=== PATIENT | female | born 1975 | race Caucasian/White ===

== ENCOUNTER 2017-07-30 07:03 | Inpatient (IN) | payer OTHER ==
[~2017-07-30] VITALS: Ht 160 cm; Wt 62.6 kg
[~2017-07-30 07:03] MED LIST: PNV1TABL57 PO; ranitidine
[2017-07-30] MEDS ORDERED: Carboprost 250 mCg/mL Inj IM PRN ×2 (08:20→09:30)
[2017-07-30] MEDS ORDERED: Lactated Ringer's 1,000 ML IV PRN (08:20)
[2017-07-30] MEDS ORDERED: fentaNYL-PF 50 mCg/mL 2 mL Inj IVPUSH PRN (08:20)
[2017-07-30] MEDS ORDERED: Sodium Chloride LOK Flush 10 mL Syringe IVFLUSH PRN (08:20)
[2017-07-30] MEDS ORDERED: Oxytocin 30 Units/500 mL LR 30 UNITS in IV Premix 1 EACH IV PRN ×2 (08:20→09:30)
[2017-07-30] MEDS ORDERED: Methylergonovine 0.2 mg/mL Inj IM PRN ×2 (08:20→09:30)
[2017-07-30] MEDS ORDERED: Oxytocin 10 Unit/mL Inj IM PRN ×2 (08:20→09:30)
[2017-07-30] MEDS ORDERED: Oxytocin 30 Units/500 mL LR Premix IV ONE (08:20)
[2017-07-30] MEDS ORDERED: Hemorrhage Kit, Post Partum XX ONE ×2 (08:20→09:30)
[2017-07-30 08:57] LABS: Mean Corpuscular Hemoglobin 31.9 pg (27.0-35.0); Mean Corpuscular Volume 94.2 fL (81-100)
[2017-07-30] MEDS ORDERED: Ondansetron 2 mg/mL 2 mL Inj IVPUSH PRN (09:25)
[2017-07-30] MEDS ORDERED: Witch Hazel-Glycerin Pads TOPICAL PRN (09:30)
[2017-07-30] MEDS ORDERED: Benzocaine (Dermoplast) 20% 60 Gm Spray TOPICAL PRN (09:30)
--- NOTE | 2017-07-30 09:55 | PCM.HPOB ---
Subjective Date of Service: Jul 30, 2017 Referring Provider: Admitting Physician: Katrin Owens MD Primary Care Physician: Katrin Owens MD Attending Physician: Katrin Owens MD Chief Complaint Active labor at 38+2 weeks History of Present History of Present Illness Patient is a pleasant 41-year-old who has had regular care and has an EDC of 08/11/2017. She woke this morning at 5 AM with contractions that became more regular over the next hour or so and was 4 cm on arrival at the center with intact membranes. heart rate was reactive with baseline in the 130s to 140s with good stjn-po-bjlc variability. Mother is GBS negative. She is also O- and received RhoGAM in the . Weight gain in the was 20 pounds. She did use both tobacco and marijuana throughout the and was counseled regarding their use and effects on the baby. Her 1 hour GTT was elevated at 161, but the 3 hour GTT showed fasting blood sugar 72, 1 hour 131, 2R 96, and 3 hour 58. Her A1c at that time was 5%. Patient's quad screen was also considered screen positive for Down's and she was seen by maternal medicine. However her age-related risk was 1 in 97 and her labs showed the risks to be 1 in 249. Level II ultrasound was reassuring with no abnormalities noted. Mother did not elect to have amniocentesis. She has otherwise been healthy and came regularly for care in this . OB History: (7), Para (6), Term (6), Pre-term (0), , Living (6) Obstetrical Complications: Other (advanced maternal age) Past Medical History Obstetrical History: 1. Her first baby was born in September 1996 at 40 weeks gestational age. She had 5 hours of labor and delivered a 6 pounds and 15 ounce baby boy. Both baby and were healthy and his name is Chapito. 2. Her second baby was born in March 1998 at 39 weeks +6 days. She had 5 are as of labor and had a baby girl weighing 6 lbs. 1 oz. The was healthy but the baby had a VSD with mesh closure at the age of 4. Her name is Andreia, and she has otherwise done well. 3. Her third baby was born in September 2001 at 40 weeks +5 days following 8 hours of labor. She had a baby girl weighing 7 lbs. 2 oz. by vaginal delivery. That baby in were healthy and child's name is Joycelyn. 4. Her next baby was born in August 2007 at 40 weeks gestational age with 3 hours of labor. She had a baby boy who weighed 7 pounds and 2 ounces by vaginal delivery. Baby and healthy were and his name is Chris. 5. Her fifth baby was born in October 2008 at 40 weeks +1 day gestational age with 3 hours of labor. That baby boy weighed 6 lbs. 10 oz. and was born by vaginal delivery. His name is Elliot and he is healthy. 6. Her sixth baby was born April 2012 at 39-1/2 weeks gestational age. She had 2 hours of labor and that baby boy weighed 6 lbs. 5 oz and was warned by vaginal delivery. His name is GLADIS and he is healthy. 7. This is her seventh and current . Gynecologic History: Patient has not had any abnormal Pap smears or STDs. She was consented for tubal ligation during the and is certain she does not want any more babies. Medical History: Patient has had history of iron deficiency anemia, anxiety and depression, and migraine headaches. She has had a previous benign breast mass. She also has mild intermittent asthma. Surgical History: Patient has not had any surgical procedures apart from her vaginal deliveries. Social History: Patient has high school education and is a dwzx-kg-bbrm mom. She lives in a common-law relationship with her partner Blake. She smokes and also uses marijuana. Hx Tobacco Use: Yes Smoking Status: Current Every Day Smoker Hx Alcohol Use: No Hx Substance Use: Yes (patient uses marijuana) Past Family History Living Arrangement: with Family Genetic Screening/Counseling Genetic Screening/Counseling: Positive Comment: patient was screen positive for increased risk of Down's. Genetic Screening/Counseling Patient was screen positive for increased risk of Down's and was seen by maternal medicine. She also had a daughter with previous VSD. Level II ultrasound was normal. Review of Systems Constitutional: Y: Dizziness, Fever Eyes: Denies: Blurred Vision, Redness, Vision Changes ENT: Denies: Dental Problems, Ear Pain, Nasal Congestion, Nose Discharge, Ulcers/Sores in Mouth Cardiovascular: Denies: Chest Pain, Edema Respiratory: Reports: Cough, Wheezing Gastrointestinal: Reports: Nausea, Denies: Abdominal Pain, Constipation, Diarrhea, Vomiting Genitourinary: Denies: Dysuria Musculoskeletal: Denies: Redness, Swelling Skin/Breasts: Denies: Bruising Skin: Denies: Rash Neurological: Denies: Change in Speech Psychologic: Denies: Anxious, Depression Hematologic: Denies: Adenopathy Medications Home medications Patient has been on vitamins, ranitidine, and Ventolin as needed during the . Allergy Coded Allergies: No Known Allergies (Verified Allergy, Unknown, 08/31/07) Exam Vital Signs Blood pressure 104/64, heart rate 72, she was afebrile Constitutional: Well-developed, No deformities, Well-groomed HEENT: PERRLA, EOMI, Mucous Membr Moist/Clayton, Other (she has had all of her teeth removed) Lungs: Clear to Auscultation, Normal Air Movement, Other (she had several mild wheezes in the lower lung pulliam) Heart: Regular Rate/Rhythm, Normal S1, Normal S2, No Murmurs/Rubs/Gallops Abdomen: Gravid, Soft, No tenderness Lymphatic: Normal: Neck Palpation of Nodes Extremities: Pulses Palpable x4, Warm, No Edema Neurological/Psychiatric: Alert, Oriented X3, Cooperative, Moderate Distress Neuro: Grossly Neurologically Intact Labs/Diagnostics Labs Her blood type is O- and she received RhoGAM in the . Anybody screen was negative. Pap smear was normal. She is immune to both varicella and rubella. RPR was nonreactive, urine culture was negative, hep B surface antigen was negative, HIV was negative. Hepatitis C less than 0.1. TSH normal at 1.4. 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 GC chlamydia was negative. Hemoglobin and first trimester was 13.7 with hematocrit of 40.6. One hour GTT was elevated at 161, but three-hour was normal with fasting blood sugar 72, one hour blood sugar of 131, 2 hour blood sugar of 96, and three-hour blood sugar of 58, and A1c 5.0% at that time. GBS was negative. Antibody screen following administration of RhoGAM was positive for anti-D as expected. Maternal Blood Type: O Hx Rho(D) Immune Globulin: Yes Antibody Screen: negative Group B Strep Results: Negative Previous with GBS: No Rubella: Immune Lab History: Positive for: Hx Chicken Pox, Hx Herpes, Negative for: Hx Gonorrhea, Hx HIV, Hx Syphilis OB Intrapartum Assessment/Plan Assessment 41-year-old at 38 weeks +2 days in active labor. EDC is 08/11/2017. She is making rapid progress and at time of my exam was 8 cm, however percent effaced, with a bulging for bag, with vertex at spines. Vaginal delivery is anticipated. Mother would like tubal ligation, and she has been consented for this and seen OB during the . Problems: (1) with 38 completed weeks gestation Status: Acute ICD Code: Z3A.38 Katrin Owens MD Jul 30, 2017 09:55
--- NOTE | 2017-07-30 10:15 | PCM.OBVAG ---
Vaginal Delivery Date of Service Jul 30, 2017 Pre Operative Diagnosis Pre Operative Diagnosis 1. at 38 weeks +2 days with spontaneous labor 2. Spontaneous vaginal delivery of a live born male Post Operative Diagnosis Post Operative Diagnosis 1. at 38 weeks +2 days with spontaneous labor 2. Spontaneous vaginal delivery of a liveborn male Procedure Obstetical Procedure: Normal Spontaneous Vaginal Delivery Director Veterinary/Manager Planning Provider and Manager Planning: Dr. Katrin Owens Indication for Procedure Induction: Active labor, AROM, Progressed normally through labor Findings Obstetrical Findings: (Male), Cord (3 Vessel), Weight (3141), Presentation (MIRIAM), 1 minute (8), 5 minutes (8), Placenta (Intact/ Normal) Analgesia/Medications Procedural Analgesia: Patient had coaching and labor support throughout her labor and delivery. She did not have any IV pain medications or epidural, as she was progressing far too rapidly. Breathing was well controlled and she did an excellent job. Procedure Details Procedure Details Patient is a pleasant 41-year-old who woke with contractions about 8 minutes apart at 5 AM today. They progressed over the next hour and she headed into the center. The tire blew on their car on the way in! Patient was brought in by family and was 4 cm and raghu every 3 minutes at 0730 hrs. heart rate was reactive with baseline in the 130s to 140s with good beat- to-beat variability. She was admitted and made rapid progress from 4 to complete. Artificial rupture of membranes was done at 8-9 cm for clear fluid. Her first stage of labor was approximately 3-1/2 hours, second stage was 5 minutes, and third stage was 5 minutes. She went onto spontaneous vaginal delivery of a liveborn male with Apgars of 8 at 1 minute and 8 at 5 minutes. Baby delivered precipitously and was handed off to the maternal abdomen where delayed cord clamping was done. He had grunting with nasal flaring and retractions during the first 10 minutes or so of life and pediatrics came promptly to see him. O2 sats were reassuring. He developed some facial bruising as well, which is consistent with his precipitous delivery. Mom is bottle feeding. Placenta delivered intact with a three- vessel cord and estimated blood loss at time of delivery was less than 250 mils. I spoke with OB regarding tubal ligation and mother will eat breakfast and hopefully we will be able to facilitate that later today. She is certain that she does not want any further rabies. Routine care is otherwise anticipated and mom and babe are stable at this time. Specimen Placenta was for routine disposal Blood Loss & Administration Estimated Blood Loss: 250 Post Procedure Plan Post delivery Condition: Mom stable Katrin Owens MD Jul 30, 2017 10:15
[2017-07-30] MEDS: HYDROcodone-APAP 5-325 mg Tablet PO PRN ×2 (16:24→21:13)
[2017-07-31] MEDS: Lactated Ringer's 1,000 ML IV SCH ×5 (01:27→17:27)
[2017-07-31] MEDS ORDERED: CeFAZolin Inj 1 GM in IV Premix 1 EACH IV ONE (06:00)
[2017-07-31 06:45] LABS: Mean Corpuscular Hemoglobin 32.1 pg (27.0-35.0); Mean Corpuscular Volume 95.2 fL (81-100)
[2017-07-31] MEDS ORDERED: CeFAZolin Inj 2 GM in IV Premix 1 EACH IV ONE ×2 (07:25→07:33)
[2017-07-31] MEDS: Sodium Citrate-Citric Acid 15 mL Solution PO SCH ×2 (07:31→12:45)
--- NOTE | 2017-07-31 07:35 | PCM.HPANE ---
Patient Data Date of Service: Jul 31, 2017 Surgeon Admitting Provider:Katrin Owens MD Attending Provider:Katrin Owens MD Primary Care Physician:Katrin Owens MD Other Provider: Reason for Visit LABOR LABOR Ht/WT & BMI Height (Centimeters): 160 Weight (Kilograms): 63 Body Mass Index Allergies Coded Allergies: No Known Allergies (Verified Allergy, Unknown, 08/31/07) Past Anesthesia History Anesthesia History: Denies:: Abnormal Airway, Anesthesia Reactions, Difficult Intubation, Fam Anesthesia Reaction, Fam Malignant Hypertherm, Malignant Hyperthermia Diabetes History Hx Diabetes?: No MRSA MRSA: No Medications Hypertension Medication: No Home Meds Incl Beta Gilbert: No Reported Medications [ranitidine] No Conflict Check Bid 05/12/12 PNV CMB#95/FERROUS FUMARATE/FA-Expunged Drug, (-Expunged Drug, Do Not Renew!)1 Each Tablet1 Each PO DAILY #1 05/12/12 History History of ENT Problems?: No HEENT History: Denies:: Abnormal Airway Cataracts Difficult Intubation Dysphagia Glaucoma Hearing Problem Sinus Problem TMJ Denture Type: None Teeth Condition: Within Normal Limits Hx of Heart Problems?: No Cardiovascular History: Denies:: AICD Abdominal Aortic Aneurism Atrial Fibrillation Cardiac Surgery Chest Pain Congestive Heart Failure Coronary Artery Disease Edema Heart Murmur Hypertension Irregular Heartbeat Pacemaker Peripheral Vascular Rheumatic Fever Thrombophlebitis Valvular Heart Disease Hx of Respiratory Problem?: No Respiratory History: Denies:: Asthma COPD Chest Surgery Cough Dyspnea Emphysema Hemoptysis Oxygen Administration Pneumonia Pulmonary Embolism Tuberculosis Use of C-PAP Machine Use of Inhalers / NEBS Hx Neurologic Problems?: No Hx of GI Problems?: No Hx of Problems?: No HX of Peritoneal Dialysis: No Hx Musculoskeletal Problems?: No Hx of Psycho/Social Problems?: No Hx Surgeries?: No Hx Alcohol Use: NoHx Substance Use: Yes (patient uses marijuana) Smoking Status: Current Every Day Smoker Stop/Bang MARYLIN Risk Assessment: Low Risk, <3 Yes Risk Assessment Category Category 1A: Patient has history of documented sleep apnea, and HAS NOT received any narcotic, sedative or anesthesia administration during this stay. Category 1B: Patient has history of documented sleep apnea, and HAS received any narcotic , sedative or anesthesia administration during this stay Category 2: Patient has SUSPECTED Obstructive Sleep Apnea, and HAS received any narcotic , sedative or anesthesia administration during this stay. Category 3: Patient has SUSPECTED Obstructive Sleep Apnea and HAS NOT received narcotic, sedative or anesthesia administration during this stay. Category 4: Outpatient in Procedural Areas with known sleep apnea or who screen positive for High Risk via the STOP/BANG questionnaire. Exam Exam General Appearance: Alert, Oriented X3, Cooperative, Moderate Distress HEENT/AIRWAY: MP 2 Lungs: Clear to Auscultation, Normal Air Movement, Other (she had several mild wheezes in the lower lung pulliam) Heart: Regular Rate/Rhythm, Normal S1, Normal S2, No Murmurs/Rubs/Gallops Meds/Labs/Diagnostics Admission Meds Current Medications Lactated Ringer's (Lr) 1,000 ml @ 125 mls/hr Q8H IV Last administered on 06:23; Start 07/30/17 at 09:27 Rho Immune Globulin 300 mcg 300 mcg ONCE ONCE IM Last administered on 17:09; Start 07/30/17 at 16:40; Stop 07/30/17 at 16:41; Status DC Cefazolin Sodium/ Dextrose/Premix (Ancef Inj/IV Premix) 50 ml @ 100 mls/hr ONCE ONCE IV Last administered on 07/31/17 06:23; Start 07/31/17 at 06:00; Stop 07/31/17 at 06:29; Status DC Labs Test 07/30/17 08:40 07/30/17 10:24 07/31/17 06:13 Hold Urine Received (Received) Urine Opiates Screen Negative Urine Methadone Screen Negative Urine Barbiturates Screen Negative Urine Amphetamines Screen Negative Urine Benzodiazepines Screen Negative Urine Cocaine Metabolite Screen Negative Urine Cannabinoids Screen Positive White Blood Count 13.7th/mm3 (3.8-10.1) Red Blood Count 3.52mil/mm3 (3.90-5.20) Hemoglobin 11.3g/dL (12.0-15.6) Hematocrit 33.5% (35.0-46.0) Mean Corpuscular Volume 95.2fL (81-100) Mean Corpuscular Hemoglobin 32.1pg (27.0-35.0) Mean Corpuscular Hemoglobin Concent 33.7% (32.0-37.0) Red Cell Distribution Width 14.9% (12.3-15.4) Platelet Count 228bil/L (150-400) Plan Impression Patient chart reviewed, patient interviewed and anesthestic plan with risks, benefits, and alternatives discussed, and informed consent obtained. ASA Physical Status: ASA2 Mod Systemic Disease Anesthetic Plan: SAB Bene/Risks/Altern/Consents: Yes HP Complete Prior to Induction: Yes Doyle Black MD Jul 31, 2017 07:35
[2017-07-31] MEDS ORDERED: fentaNYL-PF 50 mCg/mL 2 mL Inj ONE (11:51)
--- NOTE | 2017-07-31 14:01 | PCM.CONSUR ---
Subjective Date of Service: Jul 31, 2017 History of Present Illness Kat Murillo is a pleasant 41 year-old female consented for sterilization with bilateral tubal ligation. Reason for Consultation bilateral tubal ligation Allergy Allergies: Coded Allergies: No Known Allergies (Verified Allergy, Unknown, 08/31/07) Medications Hypertension Medication: No Home Meds Incl Beta Blockers: No ([ranitidine]) BID (Reported) Hydrocodone-Acetaminophen 5-325 mg (Hydrocodone-Acetaminophen 5-325 mg) 1 Each Tablet 1-2 TABLET PO Q4H PRN PRN For Pain Prescribed by: ELISA VALENTINE MD Ibuprofen (Ibuprofen) 800 Mg Tablet 800 MG PO Q6H PRN PRN For Pain Prescribed by: ELISA VALENTINE MD PNV CMB#95/FERROUS FUMARATE/FA-Expunged Drug, (-Expunged Drug, Do Not Renew!) 1 Each Tablet 1 EACH PO DAILY (Reported) Past Surgical History Surgeries: No Patient/Family Past Surgical: Denies:: Anesthesia Reactions, Malignant Hyperthermia Social History Hx Alcohol Use: No Hx Substance Use: Yes (patient uses marijuana) Hx Tobacco Use: Yes PMH HEENT History History of ENT Problems?: No HEENT History: Denies:: Abnormal Airway Cataracts Difficult Intubation Dysphagia Glaucoma Hearing Problem Sinus Problem TMJ Cardiovascular History History of Heart Problems?: No Cardiovascular History: Denies:: AICD Abdominal Aortic Aneurism Atrial Fibrillation Cardiac Surgery Chest Pain Congestive Heart Failure Coronary Artery Disease Edema Heart Murmur Hypertension Irregular Heartbeat Pacemaker Peripheral Vascular Rheumatic Fever Thrombophlebitis Valvular Heart Disease Respiratory History of Respiratory Problem: No Respiratory History: Denies:: Asthma COPD Chest Surgery Cough Dyspnea Emphysema Hemoptysis Oxygen Administration Pneumonia Pulmonary Embolism Tuberculosis Use of C-PAP Machine Use of Inhalers / NEBS Neurological History Hx Neurologic Problems?: No Gastrointestinal History HX of GI Problems?: No Genitourinary History Hx of Gu Problems?: No Musculoskeletal History Hx Musculoskeletal Problems?: No Psycho Social History Hx of Psycho/Social Problems?: No Other History Diabetes: No Social History Hx Alcohol Use: NoHx Substance Use: Yes (patient uses marijuana)Hx Tobacco Use : Yes Smoking Status: Current Every Day Smoker Objective Exam Lab & Micro Results Laboratory Tests Test 07/31/17 06:13 White Blood Count 13.7th/mm3 (3.8-10.1) Red Blood Count 3.52mil/mm3 (3.90-5.20) Hemoglobin 11.3g/dL (12.0-15.6) Hematocrit 33.5% (35.0-46.0) Mean Corpuscular Volume 95.2fL (81-100) Mean Corpuscular Hemoglobin 32.1pg (27.0-35.0) Mean Corpuscular Hemoglobin Concent 33.7% (32.0-37.0) Red Cell Distribution Width 14.9% (12.3-15.4) Platelet Count 228bil/L (150-400) Result Diagram: 07/31/17 0613 Review of Systems: Constitutional: Negative, except as otherwise mentioned in the history above. Ophthalmologic: Negative, except as otherwise mentioned in the history above. Cardiovascular: Negative, except as otherwise mentioned in the history above. Respiratory: Negative, except as otherwise mentioned in the history above. Gastrointestinal: Negative, except as otherwise mentioned in the history above. Genitourinary: Negative, except as otherwise mentioned in the history above. Musculoskeletal: Negative, except as otherwise mentioned in the history above. Neurological: Negative, except as otherwise mentioned in the history above. Psychiatric: Negative, except as otherwise mentioned in the history above. Hematologic/Lymphatic: Negative, except as otherwise mentioned in the history above. Allergic/Immunologic: Negative, except as otherwise mentioned in the history above. H&P Surgical Exam Exam General: Alert, Oriented X3, Cooperative, No Acute Distress Respiratory: Clear to Auscultation Cardiac: Exam Unremarkable Assessment & Plan Assessment 41 year-old female consented for sterilization with bilateral tubal ligation. Problems: (1) with 38 completed weeks gestation Status: Acute ICD Code: Z3A.38 Plan: Bilateral tubal ligation successfully performed. Anticipate discharge home this afternoon once patient is awake and stable. Attending Statement: The patient was seen and examined together with Dr.Dr. Adriana Parkinson on 2016 and I agree with the history, exam and plan as outlined in the note above. Adriana Parkinson DO Jul 31, 2017 14:01 Lesly Donohue MD Aug 04, 2017 13:51
[2017-07-31] MEDS ORDERED: Lactated Ringer's 1,000 ML IV PRN (14:07)
--- NOTE | 2017-07-31 14:07 | PCM.ANEP1 ---
Post Anesthesia PACU Phase 1 Assessment Date of Service: Jul 31, 2017 Vital Signs 36.0 104/65 74 98% 14 Anesthetic Administered: SAB Level of Alertness: Awake, talking GUZMAN's with Equal Strength: No Pain: No Pain Scale Score: 0 Nausea or Vomiting: No CV Function & Hydration Stable: Yes Airway Device: Oxygen Delivery: Room Air Lungs: Clear to Auscultation, Normal Air Movement, Other (she had several mild wheezes in the lower lung pulliam) PACU Phase 2 Assessment Complications: No Follow up Care: No Patient Instructions Provided: N/A Doyle Black MD Jul 31, 2017 14:07
[2017-07-31] MEDS ORDERED: EPHEDrine Sulfate 50 mg/mL Inj IVPUSH PRN (14:10)
[2017-07-31] MEDS ORDERED: Ondansetron 2 mg/mL 2 mL Inj IVPUSH PRN (14:10)
[2017-07-31] MEDS ORDERED: fentaNYL-PF 50 mCg/mL 2 mL Inj IVPUSH PRN (14:10)
[2017-07-31] MEDS ORDERED: Atropine 0.4 mg/mL Inj IV PRN (14:10)
--- NOTE | 2017-07-31 16:49 | NUR ---
Family Assessment Date/time: 07/31/2017 MOB and FOB and Baby: MOB is Kat Murillo FOB is Blake Hinson Reason for SW consult: THC Use during . MOB Positive for THC. Cord Stat pending for baby. Current living situation: MOB lives in [place] with her significant other (Common law marriage) their 7 children and MOB mother (babys grandmother). Previous children/in whos care/CPS involvement: MOB has 6 other children who all live with her. Substance abuse hx: MOB denies any other drug use besides THC. Mental Health hx and current issues: Denies to this SHERIFF SERGEANT. Post- Depression symptoms and information sheet provided. Source of income/state assistance: FOB works. MOB and Grandmother stay at home with kids. DV/abuse hx: Denies Supports: MOB, mother (babys grandmother) is a major support for the family. Special healthcare needs/disabilities for baby: N/A Involvement/Referral to [facility]/community programs: MOB enrolled in [facility]. Other [facility] information provided. Other: MOB has had consistent care throughout . Assessment: MD does not identify any other concerns. RN denies any other concerns. Per Hospital police, CPS report for THC use during was made. Intake number: [id number] SHERIFF SERGEANT advised to call back in a couple of hours to see if it has screened in or not. Disposition/plan: MOB and baby are getting closer to being medically ready for discharge. SHERIFF SERGEANT provided informational packet on [facility] services, depression, and community resources. SHERIFF SERGEANT to follow up with CPS intake on whether or not the intake screened in. MD and RN denies any other concerns or needs. MOB denies any other concerns or needs. BEATRIS Kidd Addendum: 07/31/17 at 1918 by SERENA BOSS BEATRIS followed up with CPS Intake who states this intake screened IN and a CPS worker will follow up with MOB and baby in the home tomorrow morning 08/01/2017. MOB and baby discharging tonight. BEATRIS Kidd Addendum: 07/31/17 at 1918 by SERENA BOSS Baby name is BEATRIS Veloz
[2017-07-31] MEDS: HYDROcodone-APAP 5-325 mg Tablet PO PRN (17:22)
--- NOTE | 2017-07-31 17:58 | PCM.DC.OB ---
Obstetrical Discharge Summary Date of Service Jul 31, 2017 Date of hospital admission Jul 30, 2017 at 07:27 Date of Discharge: Jul 31, 2017 Providers Admitting Physician: Katrin Owens MD Primary Care Physician: Katrin Owens MD Attending Physician: Katrin Owens MD Diagnosis at Time of Discharge 1. at 38 weeks +2 days gestational age with spontaneous labor 2. Spontaneous vaginal delivery of a liveborn male infant on 07/30/2017 3. Desire for permanent contraception with a tubal ligation on 2016 Problems: (1) with 38 completed weeks gestation Status: Acute ICD Code: Z3A.38 (2) Tubal ligation status Status: Acute ICD Code: Z98.51 (3) (normal spontaneous vaginal delivery) Status: Acute ICD Code: O80 Invasive procedures Patient had a tubal ligation done on 07/31/[address] Donohue under spinal anesthetic. Date of Procedure: Jul 31, 2017 Brief History and Physical: Patient is a pleasant 41-year-old who has had regular care and has an EDC of 08/11/2017. She woke this morning at 5 AM with contractions that became more regular over the next hour or so and was 4 cm on arrival at the center with intact membranes. heart rate was reactive with baseline in the 130s to 140s with good treh-wg-zmgz variability. Mother is GBS negative. She is also O- and received RhoGAM in the . Weight gain in the was 20 pounds. She did use both tobacco and marijuana throughout the and was counseled regarding their use and effects on the baby. Her 1 hour GTT was elevated at 161, but the 3 hour GTT showed fasting blood sugar 72, 1 hour 131, 2R 96, and 3 hour 58. Her A1c at that time was 5%. Patient's quad screen was also considered screen positive for Down's and she was seen by maternal medicine. However her age-related risk was 1 in 97 and her labs showed the risks to be 1 in 249. Level II ultrasound was reassuring with no abnormalities noted. Mother did not elect to have amniocentesis. She has otherwise been healthy and came regularly for care in this . Hospital Course: Patient is a pleasant 41-year-old G7 now P7 who came into the center early in the morning of 07/30/2017 in active labor. She made rapid progress from 4-10 cm. heart rate was reactive with baseline in the 130s to 140s with good bdbw-fi-ogtg variability. AROM was done at 8-9 cm for clear fluid. Mother' s first stage of labor was about 3-1/2 hours, second stage V minutes, third stage V minutes. She went on to spontaneous vaginal delivery of a liveborn male weighing 6 lbs. 15 oz. with Apgars of 8 at 1 minute and 8 at 5 minutes. Baby was placed onto the maternal abdomen and delayed cord clamping was done. Baby cried right away and he had a lot of facial bruising. In the first 10 minutes or so of life he developed grunting with nasal flaring and retractions and pediatrics came urgently to see him. His O2 sats were reassuring and he transitioned well after getting the fluid out of his lungs. Mother's placenta delivered intact with a three-vessel cord and estimated blood loss at time of delivery was around 250 mils. Mother's perineum was intact. In the mom is bottle feeding by choice and she has good family supports and they are all bonding well with this baby. Mother did use marijuana and smoked tobacco throughout the and urine drug screen on admission was consistent with this. She had been consented for a tubal ligation during the and this was done on 07/31/[address] Donohue. Currently, mom is settling out from surgery. She has voided but her right leg has not completely regained full sensation and pain is still 6/10. She very much would like to go home this evening and over the next several hours, this is anticipated to happen. Vital signs are reviewed and are stable. Her chest showed several minor wheezes in the lower lung pulliam. Heart sounds were normal sinus rhythm with no murmurs. Breasts were soft and nipples intact. Fundus was firm at the umbilicus and she had normal rubra lochia. She had no ankle edema noted today. She is bonding well with her baby and is independent for his care. Hemoglobin this morning was 11.3, with hematocrit of 33.5 and platelet count of 228. Baby is A+ and mother is O- and she did receive Rhogam. ([ranitidine]) BID (Reported) PNV CMB#95/FERROUS FUMARATE/FA-Expunged Drug, (-Expunged Drug, Do Not Renew!) 1 Each Tablet 1 EACH PO DAILY (Reported) Disposition Patient will be discharged home later this evening. Follow-up plan Please see Dr. Owens within 2 weeks for follow-up of delivery and tubal ligation. Discharge Diet: No restrictions Discharge Activity-General: Pelvic Rest for 6 weeks, Pelvic Rest, Try not to overdue, Be up and about, Balance rest and activity, Activity as pain allows, Activity as energy allows, No lifting >15 pounds for 2 weeks Katrin Owens MD Jul 31, 2017 17:58
--- NOTE | 2017-07-31 18:04 | PCM.DIOB ---
Obstetrical Disch Instruction Date of Service: Jul 31, 2017 Dates of Hospitalization Date of Hospital Admission Jul 30, 2017 at 07:27 Providers Admitting Physician: Katrin Owens MD Primary Care Physician: Katrin Owens MD Attending Physician: Katrin Owens MD Discharge Diagnosis Discharge Diagnosis 1. at 38 weeks +2 days with spontaneous labor 2. Spontaneous vaginal delivery of a liveborn male infant 3. Desire for permanent contraception with tubal ligation by Dr. Donohue Post Operative diagnosis 1. at 38 weeks +2 days with spontaneous labor 2. Spontaneous vaginal delivery of a liveborn male infant on 07/30/2017 3. Desire for permanent contraception with tubal ligation by Dr. Donohue on 07/31/2017 Problems: (1) with 38 completed weeks gestation Status: Acute ICD Code: Z3A.38 (2) Tubal ligation status Status: Acute ICD Code: Z98.51 (3) (normal spontaneous vaginal delivery) Status: Acute ICD Code: O80 Diet Discharge Diet: No restrictions Activity Discharge Activity-General: No restrictions, Pelvic Rest for 6 weeks, Try not to overdue, Be up and about, Balance rest and activity, Activity as pain allows , Activity as energy allows, No lifting >15 pounds for 2 weeks Dressing and Incisional Care Dressing Care: Keep dressing clean, dry & intact, Change soiled dressing Hygiene: May shower, Clean incision w/ hydrogen peroxide, DO NOT soak incision under water, Perineal care, Sitz bath, Dermoplast spray, Witch Lauren pads, Ice Additional Instructions Discharge Instructions Please call the office with any questions or concerns and I would like to touch base with you in approximately 2 weeks . This can be combined with a visit when I see the baby. Follow Up Plan Follow-up Provider (F9): Katrin Owens MD Follow-up appointment: Weeks (2) Call your provider for: Fever or Chills, Shortness of breath, Heavy vaginal bleeding, Epigastric pain, Excessive constipation, Vaginal discomfort, Red painful breasts Katrin Owens MD Jul 31, 2017 18:04
[2017-07-31] MEDS ORDERED: IBUP800T28 PO (18:05)
[2017-07-31] MEDS ORDERED: HYDR-4003 PO (18:05)
[2017-07-31 18:13] VITALS: BP 118/72; PULSE 60; RESP 16
[2017-07-31] MEDS ORDERED: Albuterol HFA 200 Puff Inhaler (Vent Pts Only) ONE (18:57)
[2017-07-31] MEDS ORDERED: Ondansetron 2 mg/mL 2 mL Inj ONE (18:57)
[2017-07-31] MEDS ORDERED: Propofol 10,000 mCg/mL 20 mL Inj ONE (18:57)
[2017-07-31] MEDS ORDERED: Dexamethasone 4 mg/mL Inj ONE (18:57)
--- NOTE | 2017-07-31 23:30 | OP ---
[address] [address] OPERATIVE REPORT PATIENT: SORIN QUEEN : 1975 MR#: [id number] ADMIT: 07/30/2017 JOB ID: [id number] DATE OF SURGERY: 07/31/2017 SURGEON: Lesly Donohue MD MAMMOGRAPHER: Alison Parkinson, PGY-1 PREOPERATIVE DIAGNOSIS(ES): 1. Sterilization. 2. Multiparity. POSTOPERATIVE DIAGNOSIS(ES): 1. Sterilization. 2. Multiparity. PROCEDURE PERFORMED: bilateral tubal ligation using a modified [place] method. ANESTHESIA: Spinal. ESTIMATED BLOOD LOSS: 5 mL. COMPLICATIONS: None. PATHOLOGY SENT: Portion of right and left fallopian tube. FINDINGS AT TIME OF SURGERY: Normal-appearing fallopian tubes bilaterally. PROCEDURE IN DETAIL: The patient was taken to the operating room, where her spinal anesthesia was found to be adequate. She was placed in a lithotomy position and prepared and draped in normal sterile fashion. The appropriate surgical time-out was performed. The umbilicus was injected with 10 mL of 0.5% Marcaine plain. A 4 cm transverse skin incision was made with a scalpel just below the umbilicus. This was carried down to the underlying fascia with Stephens scissors. The fascia was tented up and entered sharply with Stephens scissors. This incision was extended laterally for a few millimeters. The perineum was entered sharply with Metzenbaum scissors. The left fallopian tube was then exposed, followed out to its fimbriated, grasped in the mid portion with a [place] clamp. A defect was made in the mesosalpinx and two free ties of 0 plain gut suture were used to isolate and ligate a segment of the tube. The tubal lumen were cauterized with the Bovie cautery. Good hemostasis was assured and the tube returned to the patient's peritoneal cavity. In a similar fashion, the right fallopian tube was identified, and followed out to the fimbriated end, grasped in the mid isthmic portion with a Alexa clamp and a defect made in the mesosalpinx. Two free ties of 0 plain gut were used to isolate and ligate a segment of tube and the tubal lumen was cauterized. The pedicles were noted to be hemostatic, and the tube returned to patient's peritoneal cavity. All instruments were then removed from the patient's peritoneal cavity. The fascia was reapproximated with 0-Vicryl suture in a running fashion. The skin was closed with 4-0 Monocryl in a subcuticular fashion. Dermabond applied. All lap, instrument, and needle counts were correct x2 at the end of the procedure and patient was taken to her room awake and in good condition.
--- NOTE | 2017-08-02 15:57 | PATH ---
SURGICAL PATHOLOGY Attending Physician:Katrin Owens MD CASE STATUS: Signed Out PATIENT NAME: KAT QUEEN PID: [id number] : 1975 DATE COLLECTED:07/31/2017 00:00 SPECIMEN: 1: Fallopian Tube, Biopsy 2: Fallopian Tube, Biopsy CLINICAL HISTORY: 1). PORTION OF RIGHT FALLOPIAN TUBE 2). PORTION OF LEFT FALLOPIAN TUBE FINAL DIAGNOSIS: 1. Fallopian Tube, Right, Tubal Ligation: Complete cross-section of segment of fallopian tube x1. 2. Fallopian Tube, Left, Tubal Ligation: Complete cross-section of segment of fallopian tube x1. ICD10: Z30.2 GROSS DESCRIPTION: The specimen is received in 2 containers not labeled as to the fixative and labeled with the patient's name. 1). The specimen is labeled "right fallopian tube" and consists of a nonfimbriated cylindrical shaped portion of tissue which measures 1.2 x 0.6 x 0.4 CM. The specimen is inked blue, sectioned into 4 pieces and entirely submitted in cassettes 1A. 2). The specimen is labeled "left fallopian tube" and consists of a nonfimbriated cylindrical shaped portion of tissue which measures 0.9 x 0.5 x 0.5 CM. The specimen is inked blue, sectioned into 3 pieces and entirely submitted in cassette 2A. 08/01/2017FL ICD-9 CODES: CPT CODES: 1: 74700 2: 36980 Electronically Signed Out Kat Ayala MD [facility] [place] [address] Technical component performed at [facility], [address] [place] [address] Ave[address], [place], [address]
== END 2017-07-31 18:58 | disposition home or self-care (01) | DRG 767 ==
LOC: FBCO 07:03 → FBC 07:27
PROVIDERS: ADMIT Family Medicine; ATTEND Family Medicine
PROC: 10E0XZZ Delivery of Products of Conception, External Approach (ICD-10-PCS; principal; 2017-07-30)
PROC: 10907ZC Drainage of Amniotic Fluid, Therapeutic from Products of Conception, Via Natural or Artificial Opening (ICD-10-PCS; 2017-07-30)
PROC: 0UL70ZZ Occlusion of Bilateral Fallopian Tubes, Open Approach (ICD-10-PCS; 2017-07-31)
DX: O62.3 Precipitate labor (principal); O99.324 Drug use complicating childbirth; F12.90 Cannabis use, unspecified, uncomplicated; O99.334 Smoking (tobacco) complicating childbirth; Z3A.38 38 weeks gestation of pregnancy; Z37.0 Single live birth; Z30.2 Encounter for sterilization